=== PATIENT | female | born 1990 | race African-American/Black ===

== ENCOUNTER 2016-05-07 19:33 | Inpatient (IN) | payer MEDICAID ==
[2016-05-07 20:56] LABS: BASO % 0.1 % (0-2); EOS % 0.1 % (0-7); HCT-HEMATOCRIT 41.2 % (34.0-49.0); HGB-HEMOGLOBIN 14.1 gm/dl (12.0-15.5); IMMATURE GRANULOCYTES PERCENT 0.4 % (0-0.3); LYMPH % 9.2 % (20-45); LYMPH ABSOLUTE COUNT 2.1 tho/cmm (0.8-4.5); MCH (MEAN CORPUSCULAR HGB) 29.3 pg (28.0-32.0); MCHC MEAN CORPUSCULAR HGB CONC 34.2 % (32.0-36.0); MCV (MEAN CELL VOLUME) 85.7 fl (82.0-96.0); MEAN PLATELET VOLUME 9.9 cmc (9.4-12.4); MONO % 8.2 % (0-12); MONOCYTE ABSOLUTE COUNT 1.9 tho/cmm (0.0-1.2); PLATELET COUNT 329 tho/cmm (150-450); RED BLOOD COUNT 4.81 mil/cmm (4.00-5.20); RED CELL DISTRIBUTION WIDTH 13.2 % (12.4-16.4); WHITE BLOOD COUNT 23.2 tho/cmm (4.0-10.0)
[2016-05-07 21:09] LABS: ANION GAP 13 mmol/L (0-20); BLOOD UREA NITROGEN 12 mg/dl (6-24); CARBON DIOXIDE-VENOUS 21 mmol/L (22-32); CHLORIDE 105 mmol/l (96-110); CREATININE 0.83 mg/dl (0.50-1.10); GLUCOSE 133 mg/dL (70-110); SODIUM 135 mmol/L (135-145); eGFR VALUE FOR BLACK >90 mL/Min
[2016-05-07 21:12] LABS: POTASSIUM 3.6 mmol/L (3.7-5.1)
[2016-05-07] MEDS ORDERED: MELOXICAM15 M1 PO (21:39)
[2016-05-08 11:25] LABS: BASO % 0.1 % (0-2); IMMATURE GRANULOCYTES ABSOLUTE 0.08 tho/cmm (0-0.03); IMMATURE GRANULOCYTES PERCENT 0.5 % (0-0.3); LYMPH % 4.7 % (20-45); LYMPH ABSOLUTE COUNT 0.7 tho/cmm (0.8-4.5); MCV (MEAN CELL VOLUME) 87.8 fl (82.0-96.0); MEAN PLATELET VOLUME 9.7 cmc (9.4-12.4); MONO % 2.7 % (0-12); MONOCYTE ABSOLUTE COUNT 0.4 tho/cmm (0.0-1.2); RED CELL DISTRIBUTION WIDTH 13.2 % (12.4-16.4); WHITE BLOOD COUNT 15.2 tho/cmm (4.0-10.0)
[2016-05-08 11:27] LABS: HGB-HEMOGLOBIN 9.2 gm/dl (12.0-15.5); MCH (MEAN CORPUSCULAR HGB) 28.7 pg (28.0-32.0)
[2016-05-08 11:28] LABS: HCT-HEMATOCRIT 28.1 % (34.0-49.0); MCHC MEAN CORPUSCULAR HGB CONC 32.7 % (32.0-36.0)
[2016-05-08 11:54] LABS: ANION GAP 17 mmol/L (0-20); BLOOD UREA NITROGEN 5 mg/dl (6-24); CARBON DIOXIDE-VENOUS 15 mmol/L (22-32); CHLORIDE 119 mmol/l (96-110); CREATININE 0.56 mg/dl (0.50-1.10); GLUCOSE 202 mg/dL (70-110); MAGNESIUM 1.4 mg/dl (1.3-2.6); PHOSPHOROUS 1.4 mg/dl (2.5-4.9); POTASSIUM 3.2 mmol/L (3.7-5.1); SODIUM 148 mmol/L (135-145); eGFR VALUE FOR BLACK >90 mL/Min
[2016-05-08 12:07] LABS: CALCIUM 6.1 mg/dl (8.5-10.5)
[2016-05-08 13:10] LABS: PLATELET COUNT 216 tho/cmm (150-450)
[2016-05-08 23:41] LABS: URINE BILIRUBIN NEGATIVE (NEG); URINE BLOOD NEGATIVE (NEG); URINE GLUCOSE (UA) NEGATIVE (NEG); URINE KETONE NEGATIVE (NEG); URINE LEUKOCYTE ESTERASE NEGATIVE (NEG); URINE NITRITE NEGATIVE (NEG); URINE PROTEIN NEGATIVE (NEG); URINE SPECIFIC GRAVITY 1.005 (1.003-1.030)
[2016-05-08 23:42] LABS: URINE APPEARANCE CLEAR; URINE COLOR YELLOW
[2016-05-09 03:49] LABS: BASO % 0.1 % (0-2); EOS % 0.2 % (0-7); EOSINOPHIL ABSOLUTE COUNT 0.1 tho/cmm (0.0-0.7); HCT-HEMATOCRIT 34.4 % (34.0-49.0); HGB-HEMOGLOBIN 11.5 gm/dl (12.0-15.5); IMMATURE GRANULOCYTES PERCENT 0.5 % (0-0.3); LYMPH % 9.6 % (20-45); LYMPH ABSOLUTE COUNT 1.9 tho/cmm (0.8-4.5); MCH (MEAN CORPUSCULAR HGB) 29.1 pg (28.0-32.0); MCHC MEAN CORPUSCULAR HGB CONC 33.4 % (32.0-36.0); MCV (MEAN CELL VOLUME) 87.1 fl (82.0-96.0); MEAN PLATELET VOLUME 9.7 cmc (9.4-12.4); MONO % 12.3 % (0-12); MONOCYTE ABSOLUTE COUNT 2.5 tho/cmm (0.0-1.2); NEUTROPHIL ABSOLUTE COUNT 15.5 tho/cmm (1.6-8.0); NEUTROPHIL-AUTOMATED 15.5 tho/cmm (1.6-8.0); NEUTROPHILS % 77.3 % (40-80); PLATELET COUNT 259 tho/cmm (150-450); RED BLOOD COUNT 3.95 mil/cmm (4.00-5.20); RED CELL DISTRIBUTION WIDTH 13.2 % (12.4-16.4)
[2016-05-09 04:23] LABS: C-REACTIVE PROTEIN 8.8 mg/dl (0-0.9)
[2016-05-09 11:33] LABS: ANION GAP 13 mmol/L (0-20); BLOOD UREA NITROGEN 18 mg/dl (6-24); CARBON DIOXIDE-VENOUS 21 mmol/L (22-32); CHLORIDE 115 mmol/l (96-110); GLUCOSE 122 mg/dL (70-110); PHOSPHOROUS 2.9 mg/dl (2.5-4.9); SODIUM 145 mmol/L (135-145)
[2016-05-09 11:52] LABS: CALCIUM 7.8 mg/dl (8.5-10.5); CREATININE 1.56 mg/dl (0.50-1.10); eGFR VALUE FOR BLACK 53 mL/Min
[2016-05-09] MEDS ORDERED: TYLENOL325 M2 PO (15:23)
[2016-05-09] MEDS ORDERED: BACTRIM DS TAB1 EAC2 PO (15:24)
== END 2016-05-09 16:45 | DRG 872 ==
LOC: EDMED 19:33 → EMR2 23:59 → PACU 05-08 01:42 → PCUA 05-08 02:20
PROVIDERS: Emergency Medicine; Family Medicine; Physician Assistant; ADMIT Family Medicine
PROC: 0J9H0ZX Drainage of Left Lower Arm Subcutaneous Tissue and Fascia, Open Approach, Diagnostic (ICD-10-PCS; principal; 2016-05-08)
DX: A41.9 Sepsis, unspecified organism (principal); N17.9 Acute kidney failure, unspecified; E83.39 Other disorders of phosphorus metabolism; E83.51 Hypocalcemia; L02.414 Cutaneous abscess of left upper limb; R65.20 Severe sepsis without septic shock; E87.6 Hypokalemia; F41.9 Anxiety disorder, unspecified; F32.9 Major depressive disorder, single episode, unspecified; M93.90 Osteochondropathy, unspecified of unspecified site; Q74.2 Other congenital malformations of lower limb(s), including pelvic girdle; Q74.0 Other congenital malformations of upper limb(s), including shoulder girdle
CPT/HCPCS: J1170; J1650; J2543; J3370; J3480; J7030; Q9967

== ENCOUNTER 2016-05-26 17:03 | Emergency (ER) | payer MEDICAID ==
[~2016-05-26 17:03] MED LIST: BACTRIM DS TAB1 EAC2 PO; MELOXICAM15 M1 PO; TYLENOL325 M2 PO
[2016-05-26] MEDS ORDERED: NORCO 5/3251 TAB PO (18:56)
[2016-05-26] MEDS ORDERED: MOBIC7.5 M2 PO (18:56)
== END 2016-05-26 19:14 ==
LOC: EDMED 17:03
DX: R07.89 Other chest pain (principal)

== ENCOUNTER 2016-08-04 17:08 | Emergency (ER) | payer MEDICAID ==
[~2016-08-04 17:08] MED LIST changes: +MOBIC7.5 M2 PO; +NORCO 5/3251 TAB PO
[2016-08-04] MEDS ORDERED: NO HOME MEDICATION XX (17:24)
== END 2016-08-04 17:35 ==
LOC: EDMED 17:08
DX: R51 Headache (principal); R11.0 Nausea